=== PATIENT | male | born 1975 | race Caucasian/White ===

== ENCOUNTER 2019-09-01 03:17 | Emergency (ER) | payer OTHER ==
[~2019-09-01] VITALS: Ht 177.8 cm; Wt 86.2 kg
[2019-09-01 03:59] VITALS: BP_SYST 126
--- NOTE | 2019-09-01 05:03 | NUR ---
Pt ambulatory to bed 4 for evaluation
--- NOTE | 2019-09-01 05:09 | NUR ---
Pt brought in by self. Pt awake, alert, oriented x4. pt chief complaint of sore throat, cough and congestion x1-2 days. Pt states today his throat became so painful it is difficult to swallow or take deep breaths, pt states he had 1-2 episodes of vomiting today. Pt states he has had productive cough with yellow-green mucus. Pt states he has not taken anything for the pain at this time. Pt denies diarrhea, chest pain, shortness of breath. Pt denies any other medical complaint at this time. Pt resting in ED bed, no acute distress at this time. Pt speaking in full sentances, vss.
--- NOTE | 2019-09-01 05:09 | NUR ---
ER at bedside examining patient.
[2019-09-01] MEDS ORDERED: AMOXICILLIN 500 MG CAPSULE PO ONE (05:15)
[2019-09-01 06:08] VITALS: BP_SYST 128
--- NOTE | 2019-09-01 06:08 | NUR ---
Patient given written and verbal discharge instructions and verbalizes understanding. ER MD discussed with patient the results and treatment provided. Patient in stable condition. ID arm band removed. No IV Rx of Tessalon Perles, Penicillin given. Patient educated on pain management with OTC motrin and tylenol and to follow up with PMD. Pain Scale 0/10. Opportunity for questions provided and answered. Medication side effect fact sheet provided.
== END 2019-09-01 06:08 | disposition home or self-care (01) ==
LOC: SED 03:17
DX: J02.9 Acute pharyngitis, unspecified (principal); R13.10 Dysphagia, unspecified; H69.83 Other specified disorders of Eustachian tube, bilateral
CPT/HCPCS: 99283

== ENCOUNTER 2024-03-25 18:37 | Emergency (ER) | payer OTHER ==
[~2024-03-25] VITALS: Ht 170.2 cm; Wt 77.1 kg
[2024-03-25 18:50] VITALS: BP_SYST 152; PULSE 85; RESP 22; TEMP 98.3; O2SAT 98
== END 2024-03-25 20:03 | disposition left against medical advice (07) ==
LOC: SED 18:37
DX: R07.81 Pleurodynia (principal); Z53.21 Procedure and treatment not carried out due to patient leaving prior to being seen by health care provider